=== PATIENT | female | born 1955 | race Caucasian/White ===

== ENCOUNTER → 2017-01-13 11:07 | Outpatient (CLI) | payer BC ==
[2017-01-13 11:39] LABS: BASOPHILS 0.2 % (0-2); EOSINOPHILS 1.8 % (0-7); HEMATOCRIT 32.1 % (36.0-48.0); HEMOGLOBIN 9.3 g/dL (12-16); IMMATURE GRANULOCYTES 0.2 % (0-5); LYMPHOCYTES 26.8 % (15-50); MCV 69.2 fL (80.0-100.0); MEAN PLATELET VOLUME 9.6 fL (7.4-10.4); PLATELET COUNT 307 10x3/uL (130-400); RBC 4.64 10x6/uL (4.00-5.40); RDW 18.4 % (11.5-14.5); WBC 5.6 10x3/uL (4.8-10.8)
== END | disposition home or self-care (01) ==
LOC: D.LAB 11:07
PROVIDERS: Internal Medicine Gastroenterology
DX: D64.9 Anemia, unspecified (principal)